=== PATIENT | male | born 1955 | race Caucasian/White ===

== ENCOUNTER 2020-06-15 14:04 | Emergency (ER) | payer OTHER ==
[2020-06-15 15:31] LABS: HEMOGLOBIN 16.5 gm/dl (14.0-17.5); RED BLOOD COUNT 5.07 M/UL (4.20-5.50); WHITE BLOOD COUNT 6.4 K/UL (4.5-11.0)
[2020-06-15 15:57] LABS: BUN/CREATININE RATIO 24 (0-10)
[2020-06-15] MEDS ORDERED: ZOFRAN ODT 4 MG4 MG PO (17:13)
[2020-06-15] MEDS ORDERED: ZITHROMAX TRI-500 MG PO (17:13)
== END 2020-06-15 17:30 | disposition home or self-care (01) ==
LOC: ER1 14:04
PROVIDERS: Emergency Medicine
DX: R19.7 Diarrhea, unspecified (principal); E11.9 Type 2 diabetes mellitus without complications; Z88.0 Allergy status to penicillin; Z88.2 Allergy status to sulfonamides; Z20.822 Contact with and (suspected) exposure to COVID-19
CPT/HCPCS: 80053; 81001; 83690; 85025; 99284; U0002

== ENCOUNTER 2021-07-25 15:04 | Emergency (ER) | payer OTHER ==
[~2021-07-25 15:04] MED LIST: ZITHROMAX TRI-500 MG PO; ZOFRAN ODT 4 MG4 MG PO
[2021-07-25 17:08] LABS: HEMOGLOBIN 15.2 gm/dl (14.0-17.5); RED BLOOD COUNT 4.71 M/UL (4.20-5.50); WHITE BLOOD COUNT 15.2 K/UL (4.5-11.0)
[2021-07-25 17:26] LABS: BUN/CREATININE RATIO 16 (0-10)
[2021-07-25] MEDS ORDERED: KEPPRA500 MG PO (18:23)
== END 2021-07-25 19:50 | disposition home or self-care (01) ==
LOC: ER1 15:04
PROVIDERS: Emergency Medicine
DX: G40.409 Other generalized epilepsy and epileptic syndromes, not intractable, without status epilepticus (principal); F15.90 Other stimulant use, unspecified, uncomplicated
CPT/HCPCS: 70450; 71045; 80053; 80307; 83605; 83735; 84100; 85025; 96372; 96374; 96375; 99285; G0480